=== PATIENT | female | born 1955 | race Caucasian/White ===

== ENCOUNTER 2019-05-02 11:42 | Emergency (ER) | payer MEDICARE, OTHER ==
--- NOTE | 2019-05-02 11:57 | EDM.PDOCBH ---
ED HPI GENERAL MEDICAL PROBLEM - General Chief Complaint: Behavioral/Psych Stated Complaint: MULTIPLE ISSUES Time Seen by Provider: 05/02/19 11:55 - History of Present Illness INITIAL COMMENTS - FREE TEXT/NARRATIVE: 64-year-old female brought in by her with several concerns regarding her Parkinson's medication treatment and possible side effects. The patient is from [place] and her family is working with their neurologist in [place]. Recently the patient was stopped off carbidopa levodopa as she was on maximal doses and started on Rytary she was taking 48.75 mg tablets 2 of them 4 times a day in addition to 23.75 mg 4 times a day the patient was doing worse on this dose and they have decreased it to now she is taking 48.75 one tablet twice a day and in between these doses she takes 2 of the 48.756 twice a day for a total of 6 in 24 hours and she takes 23.75 twice a day the patient was having hallucinations on this bigger dose 5 or 6 days ago she was started on Seroquel 25 mg a day this caused almost manic-like episodes where she was hyperactive these lasted about 6 hours a day to the patient was very sleepy for about 8 hours after this. They decreased the dose to 12.5 mg a day this did not seem to help they stopped it a couple of days ago today she took her first dose of Nuplazid. So it is unclear if this is helping. 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 Patient denies any pain or any other signs of illness. - Related Data Allergies Allergy/AdvReac Type Severity Reaction Status Date / Time No Known Allergies Allergy Verified 05/02/19 11:53 Home Meds: Home Meds Aspirin 81 mg PO DAILY 05/02/19 [History] Carbidopa/Levodopa [Rytary ER 23.75 mg-95 mg Cap] 1 cap PO QID 05/02/19 [History ] Carbidopa/Levodopa [Rytary ER 48.75 mg-195 mg Cap] 3 cap PO QID 05/02/19 [ History] Celecoxib 100 mg PO DAILY PRN 05/02/19 [History] Cyanocobalamin (Vitamin B-12) [Vitamin B-12] 500 mcg PO DAILY 05/02/19 [History] DULoxetine [Cymbalta] 40 mg PO DAILY 05/02/19 [History] Entacapone 200 mg PO QID 05/02/19 [History] Folic Acid 2 mg PO DAILY 05/02/19 [History] Gabapentin [Neurontin] 800 mg PO QID 05/02/19 [History] Pimavanserin Tartrate [Nuplazid] 34 mg PO DAILY 05/02/19 [History] Pramipexole [Mirapex] 0.5 mg PO BEDTIME 05/02/19 [History] Pyridoxine HCl [Vitamin B-6] 100 mg PO DAILY 05/02/19 [History] atorvaSTATin [Lipitor] 20 mg PO ASDIRECTED 05/02/19 [History] Social & Family History - Tobacco Use Smoking Status *Q: Never Smoker Second Hand Smoke Exposure: No - Caffeine Use Caffeine Use: Reports: Coffee, Soda - Recreational Drug Use Recreational Drug Use: No ED ROS GENERAL - Review of Systems Review Of Systems: See Below Constitutional: Reports: No Symptoms HEENT: Reports: No Symptoms Respiratory: Reports: No Symptoms Cardiovascular: Reports: No Symptoms Endocrine: Reports: No Symptoms GI/Abdominal: Reports: No Symptoms : Reports: No Symptoms, Other (Urine is darker than normal) Musculoskeletal: Reports: No Symptoms Skin: Reports: No Symptoms Psychiatric: Reports: Agitation, Hallucinations, Mood Lability Hematologic/Lymphatic: Reports: No Symptoms Immunologic: Reports: No Symptoms ED EXAM, BEHAVIORAL HEALTH - Physical Exam Exam: See Below Exam Limited By: Other (She is fairly with it at the time of our exam according to the her symptoms are worse in the mornings) General Appearance: Alert, No Apparent Distress Eye Exam: Bilateral Eye: EOMI, Normal Inspection, PERRL Ears: Normal External Exam, Normal Canal, Hearing Grossly Normal, Normal TMs Nose: Normal Inspection, Normal Mucosa, No Blood Throat/Mouth: Normal Inspection, Normal Lips, Normal Teeth, Normal Gums, Normal Oropharynx, Normal Voice, No Airway Compromise Head: Atraumatic, Normocephalic Neck: Normal Inspection, Supple, Non-Tender, Full Range of Motion. No: Lymphadenopathy (L), Lymphadenopathy (R), Thyromegaly Respiratory/Chest: No Respiratory Distress, Lungs Clear, Normal Breath Sounds Cardiovascular: Regular Rate, Rhythm, No Edema, No Murmur GI/Abdominal: Normal Bowel Sounds, Soft, Non-Tender (Female) Exam: Normal External Exam, Normal Speculum Exam, Normal Bimanual Exam Back Exam: Normal Inspection. No: CVA Tenderness (L), CVA Tenderness (R) Extremities: Normal Inspection, No Pedal Edema Neurological: Normal Mood/Affect Psychiatric: Alert, Normal Mood Skin Exam: Warm, Dry, Intact COURSE, BEHAVIORAL HEALTH COMP - Course Vital Signs: Last Vital Signs Temp 36.6 C 05/02/19 11:52 Pulse 58 L 05/02/19 11:52 Resp 20 05/02/19 11:52 BP 176/88 H 05/02/19 11:52 Pulse Ox Orders, Labs, Meds: Active Orders 24 hr Category Date Time Status EKG Documentation Completion [RC] STAT Care 05/02/19 12:26 Active Chest 1V Frontal [CR] Stat Exams 05/02/19 12:25 Taken Head wo Cont [CT] Stat Exams 05/02/19 14:30 Ordered CULTURE BLOOD [BC] Stat Lab 05/02/19 13:00 Received CULTURE BLOOD [BC] Stat Lab 05/02/19 13:24 Received Lactated Ringers [Ringers, Lactated] 1,000 ml Med 05/02/19 13:03 Active IV NOW Blood Culture x2 Reflex Set [OM.PC] Stat Oth 05/02/19 12:27 Ordered Medication Orders Lactated Ringer's (Ringers, Lactated) 1,000 mls @ 150 mls/hr IV NOW STA Stop: 05/02/19 19:42 Last Admin: 05/02/19 13:15 Dose: 150 mls/hr Laboratory Tests 05/02/19 05/02/19 05/02/19 Range/Units 12:40 12:40 13:00 WBC 8.12 (3.98-10.04) K/mm3 RBC 4.75 (3.98-5.22) M/mm3 Hgb 15.2 (11.2-15.7) gm/dl Hct 44.6 (34.1-44.9) % MCV 93.9 (79.4-94.8) fl MCH 32.0 (25.6-32.2) pg MCHC 34.1 (32.2-35.5) g/dl RDW Std Deviation 45.2 (36.4-46.3) fL Plt Count 214 (182-369) K/mm3 MPV 11.3 (9.4-12.3) fl Neutrophils % (Manual) 61 H (40-60) % Band Neutrophils % 0 (0-10) % Lymphocytes % (Manual) 35 (20-40) % Atypical Lymphs % 0 % Monocytes % (Manual) 4 (2-10) % Eosinophils % (Manual) 0 L (0.7-5.8) % Basophils % (Manual) 0 L (0.1-1.2) Toxic Granulation See note Platelet Estimate Adequate Plt Morphology Comment Normal RBC Morph Comment Normal Sodium (136-145) mEq/L Potassium (3.5-5.1) mEq/L Chloride (98-107) mEq/L Carbon Dioxide (21-32) mEq/L Anion Gap (5-15) BUN (7-18) mg/dL Creatinine (0.55-1.02) mg/dL Est Cr Clr Drug Dosing mL/min Estimated GFR (MDRD) (>60) mL/min BUN/Creatinine Ratio (14-18) Glucose (80-115) mg/dL Calcium (8.5-10.1) mg/dL Total Bilirubin (0.2-1.0) mg/dL AST (15-37) U/L ALT (14-59) U/L Alkaline Phosphatase (46-116) U/L Troponin I (0.00-0.056) ng/mL Total Protein (6.4-8.2) g/dl Albumin (3.4-5.0) g/dl Globulin gm/dL Albumin/Globulin Ratio (1-2) TSH 3rd Generation (0.358-3.74) uIU/mL Urine Color [place] H (Yellow) Urine Appearance Clear (Clear) Urine pH 5.5 (5.0-8.0) Ur Specific [place] > or = 1.030 (1.005-1.030) Urine Protein Negative (Negative) Urine Glucose (UA) Negative (Negative) Urine Ketones Trace H (Negative) Urine Occult Blood Negative (Negative) Urine Nitrite Negative (Negative) Urine Bilirubin Negative (Negative) Urine Urobilinogen 0.2 (0.2-1.0) Ur Leukocyte Esterase Negative (Negative) Urine RBC 0-5 (0-5) /hpf Urine WBC 0-5 (0-5) /hpf Ur Epithelial Cells 0-5 (0-5) /hpf Urine Bacteria Few (FEW) /hpf Hyaline Casts 5-10 H (0-5) /lpf Urine Mucus Many H (FEW) /hpf Urine Opiates Screen Negative (LSOYWX=257) Ur Buprenorphine Scrn Negative (CUTOFF=10) Ur Oxycodone Screen Negative (NXU7BB=027) Urine Methadone Screen Negative (PVFXPT=611) Ur Propoxyphene Screen Negative (OCIHMG=947) Ur Barbiturates Screen Negative (GYZWVY=525) Ur Tricyclics Screen Negative (VQMRAK=701) Ur Phencyclidine Scrn Negative (CUTOFF=25) Ur Amphetamine Screen Negative (NWTFBA=744) U Methamphetamines Scrn Negative (OXAFKX=052) U Benzodiazepines Scrn Negative (XTVSFJ=727) U Cocaine Metab Screen Negative (VABTKV=392) U Marijuana (THC) Screen Negative (CUTOFF=50) Ethyl Alcohol (0.00) gm% 05/02/19 05/02/19 Range/Units 13:00 13:00 WBC (3.98-10.04) K/mm3 RBC (3.98-5.22) M/mm3 Hgb (11.2-15.7) gm/dl Hct (34.1-44.9) % MCV (79.4-94.8) fl MCH (25.6-32.2) pg MCHC (32.2-35.5) g/dl RDW Std Deviation (36.4-46.3) fL Plt Count (182-369) K/mm3 MPV (9.4-12.3) fl Neutrophils % (Manual) (40-60) % Band Neutrophils % (0-10) % Lymphocytes % (Manual) (20-40) % Atypical Lymphs % % Monocytes % (Manual) (2-10) % Eosinophils % (Manual) (0.7-5.8) % Basophils % (Manual) (0.1-1.2) Toxic Granulation Platelet Estimate Plt Morphology Comment RBC Morph Comment Sodium 142 (136-145) mEq/L Potassium 4.4 (3.5-5.1) mEq/L Chloride 107 (98-107) mEq/L Carbon Dioxide 31 (21-32) mEq/L Anion Gap 8.4 (5-15) BUN 26 H (7-18) mg/dL Creatinine 0.9 (0.55-1.02) mg/dL Est Cr Clr Drug Dosing 58.34 mL/min Estimated GFR (MDRD) > 60 (>60) mL/min BUN/Creatinine Ratio 28.9 H (14-18) Glucose 103 (80-115) mg/dL Calcium 9.6 (8.5-10.1) mg/dL Total Bilirubin 0.6 (0.2-1.0) mg/dL AST 17 (15-37) U/L ALT 9 L (14-59) U/L Alkaline Phosphatase 118 H (46-116) U/L Troponin I < 0.017 (0.00-0.056) ng/mL Total Protein 7.1 (6.4-8.2) g/dl Albumin 3.8 (3.4-5.0) g/dl Globulin 3.3 gm/dL Albumin/Globulin Ratio 1.2 (1-2) TSH 3rd Generation 1.436 (0.358-3.74) uIU/mL Urine Color (Yellow) Urine Appearance (Clear) Urine pH (5.0-8.0) Ur Specific [place] (1.005-1.030) Urine Protein (Negative) Urine Glucose (UA) (Negative) Urine Ketones (Negative) Urine Occult Blood (Negative) Urine Nitrite (Negative) Urine Bilirubin (Negative) Urine Urobilinogen (0.2-1.0) Ur Leukocyte Esterase (Negative) Urine RBC (0-5) /hpf Urine WBC (0-5) /hpf Ur Epithelial Cells (0-5) /hpf Urine Bacteria (FEW) /hpf Hyaline Casts (0-5) /lpf Urine Mucus (FEW) /hpf Urine Opiates Screen (QIWIIM=094) Ur Buprenorphine Scrn (CUTOFF=10) Ur Oxycodone Screen (ERT4OZ=325) Urine Methadone Screen (SJGZHS=734) Ur Propoxyphene Screen (EATQIQ=278) Ur Barbiturates Screen (ACXCFN=101) Ur Tricyclics Screen (XFLVAQ=781) Ur Phencyclidine Scrn (CUTOFF=25) Ur Amphetamine Screen (JDMGIK=264) U Methamphetamines Scrn (XLIXQC=150) U Benzodiazepines Scrn (WZQOOZ=511) U Cocaine Metab Screen (LEYBIL=621) U Marijuana (THC) Screen (CUTOFF=50) Ethyl Alcohol 0.00 (0.00) gm% Medications Generic Name Dose Route Start Last Admin Trade Name Freq PRN Reason Stop Dose Admin Lactated Ringer's 1,000 mls @ 150 mls/hr 05/02/19 13:03 05/02/19 13:15 Ringers, Lactated IV 05/02/19 19:42 150 mls/hr NOW STA Administration Discharge vs Psych Eval/Treatment:: 05/02/19 16:35 At this point the patient is fairly insistent on going home and did offer observation to improve her fluid status and further observations to see how she does and get a better sense of the spells that she's having. I did discuss situation with Dr. Salgado on-call neurologist [facility] in [place] and he would be happy to help thinks a lot of her symptoms might be due to the Rytary being dosed too high and work with him to bring it down but her neurologist in [place] is working with them on the very same thing. He also recommends to continue the use of the Nuplazid. At this point we have offered observation here at the hospital I tried to get a CTA done but the patient adamantly refuses apparently this causes a lot of anxiety for her and they did not want to go through the sedation to get this done. She agrees to drink plenty of water at home. He agreed return to the emergency room with any questions problems worsening symptoms Departure - Departure Time of Disposition: 16:40 Disposition: Home, Self-Care 01 Clinical Impression: Parkinsons disease, Medication side effects - Discharge Information Referrals: PCP,Not In Area [Primary Care Provider] - Forms: ED Department Discharge Additional Instructions: Return to the emergency room with any questions problems worsening symptoms. Discuss this with your neurologist in [place] on Saturday. Continue the medications as we discussed. - My Orders Last 24 Hours: My Active Orders 05/02/19 12:25 Chest 1V Frontal [CR] Stat 05/02/19 12:26 EKG Documentation Completion [RC] STAT 05/02/19 12:27 Blood Culture x2 Reflex Set [OM.PC] Stat 05/02/19 13:00 CULTURE BLOOD [BC] Stat 05/02/19 13:03 Lactated Ringers [Ringers, Lactated] 1,000 ml IV NOW 05/02/19 13:24 CULTURE BLOOD [BC] Stat 05/02/19 14:30 Head wo Cont [CT] Stat - Assessment/Plan Last 24 Hours: My Active Orders 05/02/19 12:25 Chest 1V Frontal [CR] Stat 05/02/19 12:26 EKG Documentation Completion [RC] STAT 05/02/19 12:27 Blood Culture x2 Reflex Set [OM.PC] Stat 05/02/19 13:00 CULTURE BLOOD [BC] Stat 05/02/19 13:03 Lactated Ringers [Ringers, Lactated] 1,000 ml IV NOW 05/02/19 13:24 CULTURE BLOOD [BC] Stat 05/02/19 14:30 Head wo Cont [CT] Stat
[2019-05-02] MEDS ORDERED: Lactated Ringers 1,000 ML IV STA (13:03)
--- NOTE | 2019-05-02 16:56 | CR ---
Chest: Portable view of the chest was obtained. Comparison: No previous chest x-ray. Possible nodule is noted within the right lung base measuring about 1.2 cm. Lungs otherwise are clear. Bony structures are unremarkable. Impression: 1. Possible nodule within the right lung base measuring about 1.[address] strongly recommended to further evaluate. 2. Nothing acute is otherwise seen. Diagnostic code #9
== END 2019-05-02 17:32 | disposition home or self-care (01) ==
LOC: JD.ED 11:42
DX: G20 Parkinson's disease (principal); R44.3 Hallucinations, unspecified; T42.8X5A Adverse effect of antiparkinsonism drugs and other central muscle-tone depressants, initial encounter; Z79.899 Other long term (current) drug therapy
CPT/HCPCS: 36415; 71045; 80053; 80306; 81001; 84443; 84484; 85007; 85027; 87040; 93005; 96360; 96361; 99285; G0480; J7120